=== PATIENT | male | born 1950 | race Caucasian/White ===

== ENCOUNTER 2023-04-11 07:49 | Day surgery (SDC) | payer MEDICARE, OTHER ==
[2023-04-08 10:24] VITALS: BMI 29.2
[2023-04-11] MEDS ORDERED: AFRIN NASAL MIST 15 ML BOT ONE (08:39)
[2023-04-11] MEDS ORDERED: Oxymetazoline HCl 0.05% ( 15 ML ) ONE (09:03)
[2023-04-11] MEDS ORDERED: Mupirocin 2% Ointment 22 GM Tube ONE (09:03)
[2023-04-11] MEDS ORDERED: Lidocaine 1% w/Epinephrine 1:100K 20 ML VIAL ONE (09:03)
[2023-04-11 09:19] LABS: Hematocrit 38.3 % (38.8-50.0); Hemoglobin 11.3 g/dL (13.5-17.5)
[2023-04-11 09:34] LABS: Anion Gap 11 mmol/L (10-20); BUN (Urea Nitrogen) 21 mg/dL (8.4-25.7); Calc. Creatinine Clearance 125 mL/min (70-130); Calcium 9.4 mg/dL (7.8-10.44); Carbon Dioxide 25 mmol/L (23-31); Chloride 107 mmol/L (98-107); Estimated GFR 94; Glucose 106 mg/dL (83-110); Potassium 4.3 mmol/L (3.5-5.1); Sodium 139 mmol/L (136-145)
[2023-04-11] MEDS ORDERED: Ondansetron PF 4 MG/2 ML Vial ONE (10:32)
[2023-04-11] MEDS ORDERED: PROPOFOL 20 ML ONE (10:32)
[2023-04-11] MEDS ORDERED: PHENYLEPHRINE-NS 100 MCG/ML 10 ML SYRINGE ONE (10:32)
[2023-04-11] MEDS ORDERED: Lidocaine 1% PF 5 ML VIAL ONE (10:32)
[2023-04-11] MEDS ORDERED: fentaNYL 50 mcg/mL 1 mL Vial ONE (10:32)
[2023-04-11] MEDS ORDERED: Dexamethasone 20 MG/5 ML VIAL ONE (10:32)
[2023-04-11] MEDS ORDERED: SUGAMMADEX SODIUM 200 MG/2 ML VIAL ONE (10:35)
[2023-04-11] MEDS ORDERED: ePHEDrine Sulfate 50 MG/10 ML VIAL ONE (10:55)
== END 2023-04-11 13:10 | disposition home or self-care (01) ==
LOC: CSHSDC 07:49
PROVIDERS: ATTEND Otolaryngology Plastic Surgery within the Head & Neck
PROC: 09SM0ZZ Reposition Nasal Septum, Open Approach (ICD-10-PCS; principal; 2023-04-11)
PROC: 095L0ZZ Destruction of Nasal Turbinate, Open Approach (ICD-10-PCS; 2023-04-11)
DX: J34.2 Deviated nasal septum (principal); J34.3 Hypertrophy of nasal turbinates; J30.1 Allergic rhinitis due to pollen; Z87.891 Personal history of nicotine dependence
CPT/HCPCS: 30520; 30802; 80048; 85014; 85018; 93005; J3010; 36415; 93010; J1100; J2405; J2704